=== PATIENT | male | born 1975 | race Caucasian/White ===

== ENCOUNTER 2016-08-24 20:41 | Emergency (ER) | payer BC, SELFPAY ==
[~2016-08-24] VITALS: Ht 180.3 cm; Wt 108.9 kg
[~2016-08-24 20:41] MED LIST: BENI20TA5 PO; CELE20TA PO; LORA-376 PO; TYLE650T30 PO; ZOFR20TA PO
[2016-08-24 20:42] VITALS: BP 166/97
== END 2016-08-24 21:12 | disposition left against medical advice (07) ==
LOC: M ED 21:10
DX: Z53.21 Procedure and treatment not carried out due to patient leaving prior to being seen by health care provider (principal)

== ENCOUNTER → 2017-05-21 | Outpatient (CLI) | payer OTHER | LOC: M ADAMS 11:55 | DX: M50.322 Other cervical disc degeneration at C5-C6 level (principal); M50.323 Other cervical disc degeneration at C6-C7 level; R13.10 Dysphagia, unspecified; J02.9 Acute pharyngitis, unspecified | CPT/HCPCS: 72040 ==

== ENCOUNTER → 2019-10-05 | Outpatient (CLI) | payer OTHER ==
[~2019-10-05] MED LIST changes: +BENI1TAB3 PO; -BENI20TA5 PO; -LORA-376 PO; +LORA0.5T5 PO; -ZOFR20TA PO; +ZOFR4TAB16 PO
[2019-10-05 11:38] LABS: BASO # 0.1 10^3/uL (0.0-0.2); BASO % 0.8 % (0.0-1.0); EOS # 0.2 10^3/uL (0.0-0.5); EOS % 2.9 % (0.0-3.0); HEMATOCRIT 46.6 % (42.0-52.0); HEMOGLOBIN 15.7 g/dl (13.5-17.5); LYMPH # 2.1 10^3/uL (1.5-5.0); LYMPH % 29.1 % (24.0-44.0); MEAN CORPUSCULAR HEMOGLOBIN 29.5 pg (27.0-33.0); MEAN CORPUSCULAR HGB CONC 33.7 g/dl (32.0-36.5); MEAN CORPUSCULAR VOLUME 87.4 fl (80.0-96.0); MONO # 0.6 10^3/uL (0.0-0.8); MONO % 7.6 % (0.0-5.0); NEUTROPHILS # 4.3 10^3/uL (1.5-8.5); NEUTROPHILS % 59.3 % (36.0-66.0); PLATELET COUNT, AUTOMATED 305 10^3/uL (150-450); RED BLOOD COUNT 5.33 10^6/uL (4.30-6.10); WHITE BLOOD COUNT 7.3 10^3/uL (4.0-10.0)
[2019-10-05 11:46] LABS: ALBUMIN 3.8 GM/DL (3.2-5.2); ALT/SGPT 54 U/L (12-78); BILIRUBIN,TOTAL 0.4 MG/DL (0.2-1.0); BLOOD UREA NITROGEN 10 MG/DL (7-18); CALCIUM LEVEL 8.9 MG/DL (8.5-10.1); CARBON DIOXIDE LEVEL 30 MEQ/L (21-32); CHLORIDE LEVEL 107 MEQ/L (98-107); CHOLESTEROL LEVEL 196 MG/DL (<200); CHOLESTEROL RISK RATIO 3.698 (<5); CREATININE FOR GFR 0.96 MG/DL (0.70-1.30); FREE T4 1.07 NG/DL (0.76-1.46); GLOMERULAR FILTRATION RATE > 60.0 (>60); GLUCOSE, FASTING 109 MG/DL (70-100); HDL CHOLESTEROL 53 MG/DL (>40); LDL CHOLESTEROL 129 MG/DL (<100); NON-HDL-C 143 MG/DL; POTASSIUM SERUM 4.1 MEQ/L (3.5-5.1); SODIUM LEVEL 140 MEQ/L (136-145); TOTAL 25(OH) VITAMIN D 25.5 NG/ML (30.0-100.0); TRIGLYCERIDES LEVEL 72 MG/DL (<150)
[2019-10-05 12:14] LABS: HEMOGLOBIN A1c 5.7 %
== END ==
LOC: M PLALAB 09:08
PROVIDERS: ATTEND Physician Assistant
DX: Z13.29 Encounter for screening for other suspected endocrine disorder (principal); E78.5 Hyperlipidemia, unspecified

== ENCOUNTER → 2019-10-12 | Outpatient (CLI) | payer OTHER ==
--- NOTE | 2019-10-16 08:04 | ECHO ---
DATE OF SERVICE: 10/12/2019 REFERRING PROVIDER: YESSENIA Hurst PATIENT LOCATION: Outpatient. REASON FOR THE STUDY: Shortness of breath. 2D MEASUREMENTS: IVS: 1.4 cm LV: 4.6 cm LVPW: 1.4 cm LA: 3.6 cm Aorta: 3.0 cm IVC: 1.3 cm DOPPLER MEASUREMENTS: Peak velocity across the aortic valve: 0.91 Peak velocity across the LVOT: 0.74 Mitral E: 0.56, Mitral A: 0.69, with a ratio of 0.8 Maximum tricuspid valve velocity: 1.8 m/s 2D COMMENTS: 1. Mildly increased left ventricular wall thickness with normal left ventricular size and normal global left ventricular systolic function. The estimated left ventricular systolic ejection function is 60-65%. 2. Normal left atrium. Normal right atrium and right ventricle. 3. The atrial septum appeared to be normal without evidence of defect or shunt. 4. Normal aortic root. 5. Trace pericardial effusion noted in limited views anteriorly, versus a fat pad. No evidence of cardiac component. 6. The aortic valve, mitral valve, tricuspid valve, and pulmonic valve appeared to be normal. The proximal pulmonary artery branches were not well visualized. 7. The inferior vena cava was normal in size, central venous pressure is most likely normal. DOPPLER: It detects trace tricuspid regurgitation. The calculated pulmonary artery systolic pressure was normal. Abnormal relaxation pattern was noted across the mitral valve leaflets as well as the mitral valve annulus, consistent with features of grade 1 left ventricular diastolic dysfunction. IMPRESSION: 1. Normal global left ventricular systolic function with mild concentric left ventricular hypertrophy. There are some features of left ventricular diastolic dysfunction manifested by abnormal relaxation. 2. Trace tricuspid regurgitation with a normal calculated pulmonary artery systolic pressure. 3. Possible trace pericardial effusion versus a fat pad noted anteriorly. No evidence of cardiac component. MTDD
--- NOTE | 2019-10-20 12:51 | SLEEPHOME ---
DATE OF PROCEDURE: 10/12/2019 INTERPRETATION: Diagnostic home sleep testing was performed due to concern for the obstructive sleep apnea syndrome. For testing a nocturnal T3 respiratory monitoring device was used. Continuous record was made of pulse , oxygen saturation, airflow, chest, abdominal strain and body position. 9 hours and 59 minutes of data were reviewed. There were 4 hours and 43 minutes marked as time in bed. During the interval marked time in bed, there were 80 respiratory events identified of 10 seconds in duration or greater for a respiratory event index of 16.7. The events were primarily obstructive. Baseline pulse rate 79 beats per minute, pulse rate ranged 62-97. Baseline saturation 94% saturations fell to 81%. Testing was performed both with supine and non-supine positions. IMPRESSION: Abnormal home sleep testing with repetitive respiratory events and oxygen desaturations to 81% with a respiratory event index of 16.9 is consistent with the obstructive sleep apnea syndrome. RECOMMENDATIONS: The patient should be encouraged to undergo formal sleep evaluation.
== END ==
LOC: M CARPUL 09:42
PROVIDERS: ATTEND Physician Assistant
DX: I10 Essential (primary) hypertension (principal); G47.33 Obstructive sleep apnea (adult) (pediatric)
CPT/HCPCS: 93306; G0399

== ENCOUNTER → 2020-11-09 | Outpatient (CLI) | payer OTHER ==
--- NOTE | 2020-11-12 15:47 | SLEEPCENT ---
DATE: 11/09/2020 NOCTURNAL POLYSOMNOGRAPHY CPAP TITRATION ORDERED BY: YESSENIA Ellis Nocturnal polysomnography was performed for the titration of pressure therapy in this patient with a clinical diagnosis of obstructive sleep apnea syndrome confirmed by home testing revealing a respiratory event index of 16.9. For testing a ResMed Airfit F20 full face mask of medium size was used, 4 cm of water pressure were applied to the circuit, and the lights were extinguished. Eight hours of data were reviewed. There were 372.5 minutes of sleep identified. Sleep latency was prolonged at 57.5 minutes. REM latency was mildly prolonged at 105 minutes. Sleep architecture was good with two REM cycles. Overall sleep efficiency was 78.3%. The electrocardiogram showed a sinus rhythm with an average heart rate of 80 beats per minute. EEG showed normal waveforms for wake and sleep. Respiratory events were best palliated with CPAP at a pressure of +7 and remaining measures of sleep physiology were normal. IMPRESSION: Obstructive sleep apnea syndrome (G47.33). RECOMMENDATION: Nightly use of CPAP 7 cm of water. cc: Mark Hernandez PA-C
== END ==
LOC: M SLEEP 20:00
PROVIDERS: ATTEND Physician Assistant
DX: G47.33 Obstructive sleep apnea (adult) (pediatric) (principal)

== ENCOUNTER 2021-05-08 12:14 | Outpatient (CLI) | payer OTHER ==
[~2021-05-08] VITALS: Ht 180.3 cm; Wt 113.4 kg
[~2021-05-08 12:14] MED LIST changes: +ALBUTEROL 90 MCG/ACT 8GM HFA INHALER INH PRN; +ALBUTEROL SULFATE 2.5 MG/0.5 ML INH NEB SOLN INH PRN; +EPINEPHrine INJ 1 MG/ML 1ML AMP IM PRN; +NS 1,000 ML IV SCH; +diphenhydrAMINE 50MG/ML VIAL (J1200) IV PRN; +methylPREDNISolone 125MG 2ML VIAL IV PRN
[2021-05-08 13:01] VITALS: BP 107/67
[2021-05-08 13:31] VITALS: BP 96/56
[2021-05-08] MEDS ORDERED: SOTROVIMAB 500 MG in NS 100 ML IV ONE (14:00)
[2021-05-08 14:31] VITALS: BP 102/65
== END 2021-05-08 14:31 | disposition home or self-care (01) ==
LOC: M OPCLI4PR 12:14
PROVIDERS: ATTEND Family Medicine
DX: U07.1 COVID-19 (principal)

== ENCOUNTER → 2022-05-21 | Outpatient (CLI) | payer OTHER, SELFPAY ==
[~2022-05-21] MED LIST changes: -ALBUTEROL 90 MCG/ACT 8GM HFA INHALER INH PRN; -ALBUTEROL SULFATE 2.5 MG/0.5 ML INH NEB SOLN INH PRN; -BENI1TAB3 PO; -EPINEPHrine INJ 1 MG/ML 1ML AMP IM PRN; -NS 1,000 ML IV SCH; +OLME20TA55 PO; -diphenhydrAMINE 50MG/ML VIAL (J1200) IV PRN; -methylPREDNISolone 125MG 2ML VIAL IV PRN
== END ==
LOC: M LABSMTC 10:12
PROVIDERS: ATTEND Family Medicine
DX: Z11.52 Encounter for screening for COVID-19 (principal)
CPT/HCPCS: 87635; C9803

== ENCOUNTER 2022-05-28 14:59 | Emergency (ER) | payer OTHER, SELFPAY ==
[~2022-05-28] VITALS: Ht 177.8 cm; Wt 113.6 kg
[2022-05-28] MEDS ORDERED: ISOVUE-370 76% 100ML VIAL As Ordered ONE (16:22)
[2022-05-28] MEDS ORDERED: amLODIPine 5 MG TAB PO ONE (17:35)
[2022-05-28] MEDS ORDERED: METO1TAB32 PO (17:38)
[2022-05-28] MEDS ORDERED: OLME40TA PO (17:38)
[2022-05-28] MEDS ORDERED: AMLO1TAB24 PO (17:38)
[2022-05-28 17:49] VITALS: BP 190/106
[2022-05-28 18:10] VITALS: BP 190/106
== END 2022-05-28 18:12 | disposition home or self-care (01) ==
LOC: M ED 14:59
DX: S16.1XXA Strain of muscle, fascia and tendon at neck level, initial encounter (principal); I10 Essential (primary) hypertension; I25.2 Old myocardial infarction; F32.A Depression, unspecified; F10.10 Alcohol abuse, uncomplicated; E66.9 Obesity, unspecified; Z86.79 Personal history of other diseases of the circulatory system; Z86.16 Personal history of COVID-19; V49.40XA Driver injured in collision with unspecified motor vehicles in traffic accident, initial encounter; Z79.811 Long term (current) use of aromatase inhibitors; Z79.899 Other long term (current) drug therapy

== ENCOUNTER → 2023-12-07 | Outpatient (REF) | payer BC ==
[~2023-12-07] MED LIST changes: +AMLO1TAB24 PO; +METO1TAB32 PO; +OLME40TA PO
== END ==
LOC: M SFHCPLAZ 13:25
PROVIDERS: ATTEND Student in an Organized Health Care Education/Training Program
DX: R35.89 Other polyuria (principal); K76.0 Fatty (change of) liver, not elsewhere classified; R20.2 Paresthesia of skin

== ENCOUNTER → 2023-12-16 | Outpatient (CLI) | payer BC ==
[2023-12-16 10:31] LABS: HEMATOCRIT 46.2 % (42.0-52.0)
[2023-12-16 10:38] LABS: BASO # 0.1 10^3/uL (0.0-0.2); EOS # 0.1 10^3/uL (0.0-0.5); HEMOGLOBIN 15.6 g/dl (13.5-17.5); LYMPH # 2.1 10^3/uL (1.5-5.0); LYMPH % 28.9 % (24.0-44.0); MEAN CORPUSCULAR HEMOGLOBIN 29.7 pg (27.0-33.0); MEAN CORPUSCULAR HGB CONC 33.2 g/dl (32.0-36.5); MEAN CORPUSCULAR VOLUME 89.4 fl (80.0-96.0); MONO # 0.7 10^3/uL (0.0-0.8); MONO % 9.9 % (2.0-8.0); NEUTROPHILS % 56.8 % (36.0-66.0); PLATELET COUNT, AUTOMATED 272 10^3/uL (150-450); RED BLOOD COUNT 5.26 10^6/uL (4.30-6.10); WHITE BLOOD COUNT 7.1 10^3/uL (4.0-10.0)
[2023-12-16 11:06] LABS: CREATININE, URINE 109.9 MG/DL; MALB URINE SIEMENS < 3.0 MG/L; MAU/CREAT RATIO 2.7 MCG/MG (0.0-30.0)
[2023-12-16 11:07] LABS: PSA SCREENING 0.54 NG/ML (< 4.00)
[2023-12-16 11:11] LABS: ALBUMIN 3.9 G/DL (3.2-5.2); ALKALINE PHOSPHATASE 108 U/L (46-116); ALT/SGPT 39 U/L (7.0-40); AST/SGOT 18 U/L (<34); BILIRUBIN,TOTAL 0.4 MG/DL (0.3-1.2); BLOOD UREA NITROGEN 14 MG/DL (9-23); CALCIUM LEVEL 9.6 MG/DL (8.5-10.1); CARBON DIOXIDE LEVEL 29 MMOL/L (20-31); CHLORIDE LEVEL 106 MMOL/L (98-107); CHOLESTEROL LEVEL 186 MG/DL (<200); CHOLESTEROL RISK RATIO 4.27 (<5); GLOMERULAR FILTRATION RATE > 60.0 (>60); GLUCOSE, FASTING 103 MG/DL (60-100); HDL CHOLESTEROL 43.5 MG/DL (>40); LDL CHOLESTEROL 123.3 MG/DL (<100); NON-HDL-C 142.5 MG/DL; POTASSIUM SERUM 4.8 MMOL/L (3.5-5.1); SODIUM LEVEL 140 MMOL/L (136-145); THYROID STIMULATING HORMONE 1.461 uIU/ML (0.55-4.78); TRIGLYCERIDES LEVEL 96 MG/DL (<150)
[2023-12-16 11:14] LABS: VITAMIN B12 LEVEL 979 PG/ML (211-911)
== END ==
LOC: M PLALAB 08:48
PROVIDERS: ATTEND Student in an Organized Health Care Education/Training Program
DX: R35.89 Other polyuria (principal); K76.0 Fatty (change of) liver, not elsewhere classified; R20.2 Paresthesia of skin
CPT/HCPCS: 36415; 80053; 80061; 82043; 82607; 82652; 82747; 84439; 84443; 85025; G0103

== ENCOUNTER → 2024-02-04 | Outpatient (CLI) | payer BC ==
[~2024-02-04] MED LIST changes: +E-Z-GAS II EFFERVESCENT PACKET (SODIUM BICARB./CITRIC ACID/SIMETHICONE) As Ordered ONE; +E-Z-HD 98% w/w 340GM SUSP BTL As Ordered ONE; +E-Z-PAQUE 96% w/w SUSP 176GM BTL As Ordered ONE
== END ==
LOC: M RAD 07:51
PROVIDERS: ATTEND Student in an Organized Health Care Education/Training Program
DX: R13.10 Dysphagia, unspecified (principal); K44.9 Diaphragmatic hernia without obstruction or gangrene

== ENCOUNTER → 2024-10-05 | Outpatient (CLI) | payer BC ==
[~2024-10-05] MED LIST changes: -E-Z-GAS II EFFERVESCENT PACKET (SODIUM BICARB./CITRIC ACID/SIMETHICONE) As Ordered ONE; -E-Z-HD 98% w/w 340GM SUSP BTL As Ordered ONE; -E-Z-PAQUE 96% w/w SUSP 176GM BTL As Ordered ONE
== END ==
LOC: M EKG 08:58
PROVIDERS: ATTEND Physician Assistant
DX: R00.2 Palpitations (principal)